=== PATIENT | male | born 1955 | race Caucasian/White ===

== ENCOUNTER 2017-02-26 13:36 | Emergency (ER) | payer MEDICAID ==
[~2017-02-26] VITALS: Ht 175.3 cm; Wt 80.0 kg
[2017-02-26 14:33] LABS: BASOPHILS % 0.5 % (0.0-2.0); EOSINOPHILS % 0.4 % (0.0-5.0); HEMATOCRIT. 47.5 % (42.0-52.0); HEMOGLOBIN. 15.8 g/dL (14.0-18.0); LYMPHOCYTES % 10.9 % (20.0-50.0); MEAN CORPUSCULAR HGB CONC 33.3 g/dL (31.0-37.0); MEAN CORPUSCULAR VOLUME 87.1 fL (80.0-94.0); MEAN PLATELET VOLUME 7.1 fl (7.4-10.4); MONOCYTES % 5.2 % (2.0-8.0); PLATELET 305 x1000/uL (130-400); RED BLOOD CELL COUNT 5.46 mill/uL (4.7-6.1); RED CELL DISTRIBUTION WIDTH 14.3 % (11.6-14.6); WHITE BLOOD COUNT 16.3 x1000/uL (4.5-11.0)
[2017-02-26 14:47] LABS: ALANINE AMINOTRANSFERASE 14 IU/L (13-61); ALBUMIN 3.7 g/dL (3.4-5.0); ANION GAP 12; CARBON DIOXIDE 29 mEq/L (21-32); CHLORIDE 106 mEq/L (98-107); INDEX HEMOLYSI 1 (1-3); INDEX ICTERIC 1 (1-4); INDEX LIPEMIC 1 (1-3); UREA NITROGEN BLOOD 10 mg/dL (7-21); eGFR > 60 mL/min (>60)
[2017-02-26 18:16] LABS: CLARITY URINE CLEAR (CLEAR); COLOR URINE YELLOW (YELLOW); GLUCOSE URINE NEGATIVE (NEGATIVE); KETONES URINE NEGATIVE (NEGATIVE); LEUKOCYTE ESTERASE URINE NEGATIVE (NEGATIVE); NITRITE URINE NEGATIVE (NEGATIVE); OCCULT BLOOD URINE TRACE (NEGATIVE); PROTEIN URINE 1+ (NEGATIVE)
[2017-02-26 18:50] LABS: BACTERIA URINE 1+; RBC URINE 0-2 /hpf (0-2); SQUAMOUS EPITHELIAL CELL URINE FEW /lpf (RARE/1+); WBC URINE 0-2 /hpf (0-2)
[2017-02-26 20:52] VITALS: BP 127/67
== END 2017-02-26 22:09 | disposition home or self-care (01) ==
LOC: ER 13:47
DX: G40.909 Epilepsy, unspecified, not intractable, without status epilepticus (principal); I10 Essential (primary) hypertension; I69.351 Hemiplegia and hemiparesis following cerebral infarction affecting right dominant side; I48.91 Unspecified atrial fibrillation; I25.2 Old myocardial infarction; D72.829 Elevated white blood cell count, unspecified; Z79.01 Long term (current) use of anticoagulants
CPT/HCPCS: 36415; 80053; 81001; 85025; 93005; 99284; Z7610

== ENCOUNTER 2019-08-29 13:31 | Inpatient (IN) | payer MEDICAID ==
[2019-08-29] VITALS (18 sets, daily range): BP systolic 99–162; BP diastolic 61–110
[~2019-08-29] VITALS: Ht 177.8 cm; Wt 94.4 kg
[2019-08-29] MEDS ORDERED: SODIUM CHLORIDE 0.9% 1,000 ML IV ONE (13:42)
[2019-08-29 14:22] LABS: BASOPHILS % 0.9 % (0.0-2.0); LYMPHOCYTES % 29.1 % (20.0-50.0); MEAN CORPUSCULAR HEMOGLOBIN 28.9 pg (28.0-32.0); MEAN CORPUSCULAR VOLUME 88.9 fL (80.0-94.0); MEAN PLATELET VOLUME 7.9 fl (7.4-10.4); PLATELET 388 x1000/uL (130-400); RED CELL DISTRIBUTION WIDTH 13.8 % (11.6-14.6)
[2019-08-29 14:29] LABS: CHLORIDE 115 mEq/L (98-107)
[2019-08-29 14:34] LABS: ETHANOL BLOOD < 10 mg/dL
[2019-08-29] MEDS ORDERED: LEVETIRACETAM 1000MG/100ML 100 ML IV ONE (14:45)
[2019-08-29] MEDS ORDERED: PROPOFOL 10MG/ML 100ML 100 ML IV SCH (14:45)
[2019-08-29 15:17] LABS: BG BASE EXCESS -13.2 mmol/L (-2.0-2.0); BG CARBOXYHEMOGLOBIN 1.1 % (0.5-1.5); BG DEOXYHEMOGLOBIN 1.1 % (0.0-5.0); BG FRACTION INSPIRED OXYGEN 60; BG HCO3 ACT 14.3 mmol/L (22.0-26.0); BG METHEMOGLOBIN 0.3 % (0.0-1.5); BG OXYGEN SATURATION 98.9 % (92.0-98.5); BG OXYHEMOGLOBIN 97.5 % (94.0-97.0); BG PCO2 38.5 mmHg (35.0-45.0); BG PH 7.187 (7.350-7.450); BG SAMPLE SITE RIGHT RADIAL; BG TIDAL VOLUME(mL) 500 mL; BG TOTAL HEMOGLOBIN 12.3 g/dL (12.0-18.0); BG VENT MODE VENT - A/C; BG VENT RATE 14 set
[2019-08-29 15:54] LABS: CLARITY URINE TURBID (CLEAR); COLOR URINE YELLOW (YELLOW); KETONES URINE NEGATIVE (NEGATIVE); LEUKOCYTE ESTERASE URINE 1+ (NEGATIVE); NITRITE URINE NEGATIVE (NEGATIVE); OCCULT BLOOD URINE 1+ (NEGATIVE); PROTEIN URINE 3+ (NEGATIVE); SPECIFIC GRAVITY URINE 1.012 (1.005-1.030); UROBILINOGEN URINE 0.2 E.U./dL (0.2-1.0)
[2019-08-29] MEDS ORDERED: SODIUM BICARBONATE 8.4% 1 MEQ/ML 50ML SYR IV SCH (16:00)
[2019-08-29] MEDS ORDERED: PIPERACILLIN/TAZOBACTAM 3.375 G in DEXT 5% WATER 100 ML IV SCH (16:00)
[2019-08-29 16:08] LABS: *AMPHETAMINES SCREEN URINE NEGATIVE (NEGATIVE); *BARBITURATES SCREEN URINE NEGATIVE (NEGATIVE)
[2019-08-29 16:09] LABS: *BENZODIAZEPINES SCREEN URINE NEGATIVE (NEGATIVE); *COCAINE SCREEN URINE NEGATIVE (NEGATIVE); CANNABINOID URINE SCREEN NEGATIVE (NEGATIVE); METHADONE URINE SCREEN NEGATIVE (NEGATIVE); OPIATES URINE SCREEN NEGATIVE (NEGATIVE); PHENCYCLIDINE URINE SCREEN NEGATIVE (NEGATIVE)
[2019-08-29] MEDS ORDERED: LACTULOSE 20G/30ML UDC PO SCH (16:15)
[2019-08-29 17:47] LABS: CREATINE KINASE 58 IU/L (39-308)
[2019-08-29] MEDS: PIPERACILLIN/TAZOBACTAM 2.25 G in DEXTROSE 5% WATER 50 ML IV SCH (17:49)
[2019-08-29] MEDS: ENOXAPARIN 100MG/ML SYR SUBCUT SCH (17:49)
[2019-08-29] MEDS: PROPOFOL 10MG/ML 100ML 100 ML IV PRN (17:49)
[2019-08-29] MEDS: FAMOTIDINE 20MG TABLET PO SCH (17:50)
[2019-08-29 18:00] LABS: CHLORIDE 118 mEq/L (98-107)
[2019-08-29] MEDS ORDERED: VANCOMYCIN 1500MG in DEXTROSE 5% WATER 250ML IV NR (18:30)
[2019-08-29] MEDS ORDERED: AMLO10TA4 PO (18:33)
[2019-08-29] MEDS ORDERED: METO25TA6 PO (18:33)
[2019-08-29] MEDS ORDERED: ASPI-1393 PO (18:33)
[2019-08-29] MEDS ORDERED: KEPP500 PO (18:33)
[2019-08-29] MEDS ORDERED: LORAZEPAM 2MG/ML CPJ IV PRN ×2 (18:45→20:30)
[2019-08-29] MEDS ORDERED: HYDROCODONE/ACETAMINOPHEN 10/325MG TABLET PO PRN (20:30)
[2019-08-29] MEDS ORDERED: ONDANSETRON HCL 4MG/2ML INJ IV PRN (20:30)
[2019-08-29] MEDS ORDERED: GUAIFENESIN 200MG/10ML SUGAR FREE UDC PO PRN (20:30)
[2019-08-29] MEDS ORDERED: MAGNESIUM/ALUMINUM HYDROXIDE/SIMETHICONE 30ML UDC PO PRN (20:30)
[2019-08-29] MEDS ORDERED: DOCUSATE SODIUM 100MG CAPSULE PO PRN (20:30)
[2019-08-29] MEDS ORDERED: HYDROMORPHONE HCL/PF 2MG/ML CPJ IV PRN (20:30)
[2019-08-29] MEDS ORDERED: DIPHENHYDRAMINE 50MG/ML VIAL IV PRN (20:30)
[2019-08-29] MEDS: IPRATROPIUM/ALBUTEROL 0.5-3(2.5)MG/3ML NEB HHN SCH (20:36)
[2019-08-29] MEDS: DEXT 5%/0.45% NACL 1000ML 1,000 ML IV SCH (20:49)
[2019-08-29] MEDS: CLONIDINE 0.1MG TABLET PO PRN (20:56)
[2019-08-29] MEDS: SODIUM CHLORIDE 0.9% INJ 3ML FLUSH IVF SCH (21:18)
[2019-08-30] VITALS (60 sets, daily range): BP systolic 105–173; BP diastolic 59–97
[2019-08-30 00:02] LABS: CREATINE KINASE MB FRACTION 2.8 ng/mL (0.5-3.6)
[2019-08-30] MEDS: PIPERACILLIN/TAZOBACTAM 2.25 G in DEXTROSE 5% WATER 50 ML IV SCH ×5 (00:26→23:47)
[2019-08-30] MEDS: IPRATROPIUM/ALBUTEROL 0.5-3(2.5)MG/3ML NEB HHN SCH ×5 (02:17→20:15)
[2019-08-30] MEDS: SODIUM CHLORIDE 0.9% INJ 3ML FLUSH IVF SCH ×3 (05:34→21:11)
[2019-08-30 06:30] LABS: BASOPHILS % 0.4 % (0.0-2.0); EOSINOPHILS % 0.5 % (0.0-5.0); HEMATOCRIT. 34.4 % (42.0-52.0); HEMOGLOBIN. 11.5 g/dL (14.0-18.0); LYMPHOCYTES % 9.2 % (20.0-50.0); MEAN CORPUSCULAR HEMOGLOBIN 29.2 pg (28.0-32.0); MEAN CORPUSCULAR VOLUME 87.6 fL (80.0-94.0); MEAN PLATELET VOLUME 7.6 fl (7.4-10.4); NEUTROPHILS % 81.9 % (40.0-76.0); PLATELET 296 x1000/uL (130-400); RED BLOOD CELL COUNT 3.93 mill/uL (4.7-6.1); RED CELL DISTRIBUTION WIDTH 13.8 % (11.6-14.6)
[2019-08-30 07:56] LABS: BG CARBOXYHEMOGLOBIN 0.9 % (0.5-1.5); BG DEOXYHEMOGLOBIN 1.7 % (0.0-5.0); BG FRACTION INSPIRED OXYGEN 40; BG HCO3 ACT 14.9 mmol/L (22.0-26.0); BG METHEMOGLOBIN 0.3 % (0.0-1.5); BG OXYGEN SATURATION 98.3 % (92.0-98.5); BG OXYHEMOGLOBIN 97.1 % (94.0-97.0); BG PCO2 29.8 mmHg (35.0-45.0); BG PH 7.316 (7.350-7.450); BG PO2 121.9 mmHg (75.0-100.0); BG SAMPLE SITE RIGHT RADIAL; BG TIDAL VOLUME(mL) 500 mL; BG TOTAL HEMOGLOBIN 11.3 g/dL (12.0-18.0); BG VENT MODE VENT - A/C; BG VENT RATE 18 set
[2019-08-30] MEDS ORDERED: PHENYTOIN SODIUM 1,000 MG in SODIUM CHLORIDE 0.9% 100 ML IV SCH (08:00)
[2019-08-30] MEDS: PROPOFOL 10MG/ML 100ML 100 ML IV PRN (09:02)
[2019-08-30] MEDS ORDERED: WATER IV PRN (10:00)
[2019-08-30] MEDS ORDERED: DEXT 5% IV PRN (10:00)
[2019-08-30] MEDS ORDERED: ATROPINE SULFATE 1MG/10ML SYR IV PRN (10:00)
[2019-08-30] MEDS ORDERED: ISOPROTERENOL HCL IV PRN (10:00)
[2019-08-30] MEDS: DEXT 5%/0.45% NACL 1000ML 1,000 ML IV SCH ×2 (10:05→17:09)
[2019-08-30 10:45] LABS: CHLORIDE 117 mEq/L (98-107)
[2019-08-30 10:55] LABS: LDL CHOLESTEROL 96 mg/dL (5-100); PHOSPHORUS 5.1 mg/dL (2.5-4.9)
[2019-08-30 10:56] LABS: CREATINE KINASE 126 IU/L (39-308); CREATINE KINASE MB FRACTION 3.4 ng/mL (0.5-3.6); HDL CHOLESTEROL 29 mg/dL (40-59)
[2019-08-30 10:57] LABS: T4 FREE 1.29 ng/dL (0.76-1.46)
[2019-08-30] MEDS: MIDAZOLAM HCL 50 MG in DEXTROSE 5% WATER 40 ML IV SCH ×2 (11:45→20:58)
[2019-08-30] MEDS: LEVETIRACETAM 500 MG in SODIUM CHLORIDE 0.9% 100 ML IV SCH ×2 (12:42→23:47)
[2019-08-30 14:05] LABS: CREATINE KINASE 161 IU/L (39-308)
[2019-08-30] MEDS: LACTULOSE 20G/30ML UDC PO SCH ×2 (15:03→21:11)
[2019-08-30] MEDS: ENOXAPARIN 100MG/ML SYR SUBCUT SCH (17:08)
[2019-08-30] MEDS: FAMOTIDINE 20MG TABLET PO SCH (17:09)
[2019-08-30] MEDS: PHENYTOIN SODIUM 300 MG in SODIUM CHLORIDE 0.9% 50 ML IV SCH (21:11)
[2019-08-31] VITALS (42 sets, daily range): BP systolic 132–187; BP diastolic 72–147
[2019-08-31] MEDS: IPRATROPIUM/ALBUTEROL 0.5-3(2.5)MG/3ML NEB HHN SCH ×3 (02:07→19:59)
[2019-08-31] MEDS: DEXT 5%/0.45% NACL 1000ML 1,000 ML IV SCH ×3 (02:10→18:49)
[2019-08-31] MEDS: MIDAZOLAM HCL 50 MG in DEXTROSE 5% WATER 40 ML IV SCH ×2 (03:52→14:43)
[2019-08-31] MEDS: PIPERACILLIN/TAZOBACTAM 2.25 G in DEXTROSE 5% WATER 50 ML IV SCH ×3 (05:09→17:21)
[2019-08-31] MEDS: SODIUM CHLORIDE 0.9% INJ 3ML FLUSH IVF SCH ×2 (05:09→14:42)
[2019-08-31] MEDS: LACTULOSE 20G/30ML UDC PO SCH ×3 (05:10→22:38)
[2019-08-31 05:54] LABS: BASOPHILS % 0.3 % (0.0-2.0); EOSINOPHILS % 0.5 % (0.0-5.0); HEMATOCRIT. 33.8 % (42.0-52.0); HEMOGLOBIN. 11.3 g/dL (14.0-18.0); LYMPHOCYTES % 9.1 % (20.0-50.0); MEAN CORPUSCULAR HEMOGLOBIN 29.2 pg (28.0-32.0); MEAN CORPUSCULAR VOLUME 87.5 fL (80.0-94.0); MEAN PLATELET VOLUME 7.7 fl (7.4-10.4); MONOCYTES % 8.7 % (2.0-8.0); NEUTROPHILS % 81.4 % (40.0-76.0); PLATELET 280 x1000/uL (130-400); RED BLOOD CELL COUNT 3.87 mill/uL (4.7-6.1)
[2019-08-31] MEDS ORDERED: CITRIC ACID/SODIUM CITRATE SOLN 30ML UDC PO SCH (09:00)
[2019-08-31] MEDS: IPRATROPIUM/ALBUTEROL 0.5-3(2.5)MG/3ML NEB HHN PRN (09:03)
[2019-08-31] MEDS: LEVETIRACETAM 500 MG in SODIUM CHLORIDE 0.9% 100 ML IV SCH ×2 (11:19→23:53)
[2019-08-31] MEDS ORDERED: VANCOMYCIN 1 G PREMIX 200 ML IV NR (12:00)
[2019-08-31] MEDS: CITRIC ACID/SODIUM CITRATE SOLN 30ML UDC NG SCH ×2 (14:42→17:30)
[2019-08-31] MEDS: FAMOTIDINE 20MG TABLET PO SCH (17:21)
[2019-08-31] MEDS: ENOXAPARIN 100MG/ML SYR SUBCUT SCH (17:21)
[2019-08-31] MEDS: CLONIDINE 0.1MG TABLET PO PRN ×2 (17:42→23:36)
[2019-09-01] VITALS (65 sets, daily range): BP systolic 123–184; BP diastolic 51–142
[2019-09-01] MEDS: ACETAMINOPHEN 325MG TABLET PO PRN (00:16)
[2019-09-01] MEDS: IPRATROPIUM/ALBUTEROL 0.5-3(2.5)MG/3ML NEB HHN SCH ×4 (02:01→21:09)
[2019-09-01] MEDS: PHENYTOIN SODIUM 300 MG in SODIUM CHLORIDE 0.9% 50 ML IV SCH ×2 (04:36→20:46)
[2019-09-01] MEDS: PIPERACILLIN/TAZOBACTAM 2.25 G in DEXTROSE 5% WATER 50 ML IV SCH ×5 (05:53→17:37)
[2019-09-01] MEDS: LACTULOSE 20G/30ML UDC PO SCH ×3 (05:53→22:49)
[2019-09-01 07:15] LABS: BASOPHILS % 0.5 % (0.0-2.0); EOSINOPHILS % 1.5 % (0.0-5.0); HEMATOCRIT. 33.1 % (42.0-52.0); LYMPHOCYTES % 14.4 % (20.0-50.0); MEAN CORPUSCULAR HEMOGLOBIN 28.8 pg (28.0-32.0); MEAN CORPUSCULAR VOLUME 86.6 fL (80.0-94.0); MONOCYTES % 9.4 % (2.0-8.0); NEUTROPHILS % 74.2 % (40.0-76.0); PLATELET 271 x1000/uL (130-400); RED BLOOD CELL COUNT 3.83 mill/uL (4.7-6.1); RED CELL DISTRIBUTION WIDTH 13.9 % (11.6-14.6)
[2019-09-01 08:42] LABS: BG CARBOXYHEMOGLOBIN 1.2 % (0.5-1.5); BG DEOXYHEMOGLOBIN 2.1 % (0.0-5.0); BG FRACTION INSPIRED OXYGEN 40; BG METHEMOGLOBIN 0.3 % (0.0-1.5); BG OXYGEN SATURATION 97.9 % (92.0-98.5); BG OXYHEMOGLOBIN 96.4 % (94.0-97.0); BG PCO2 35.1 mmHg (35.0-45.0); BG PH 7.329 (7.350-7.450); BG PO2 108.6 mmHg (75.0-100.0); BG SAMPLE SITE RIGHT RADIAL; BG TIDAL VOLUME(mL) 500 mL; BG TOTAL HEMOGLOBIN 13.2 g/dL (12.0-18.0); BG VENT MODE VENT - A/C; BG VENT RATE 18 set
[2019-09-01] MEDS: CITRIC ACID/SODIUM CITRATE SOLN 30ML UDC NG SCH ×3 (09:04→17:37)
[2019-09-01] MEDS ORDERED: LIDOCAINE HCL 1% 20ML VIAL (Pyxis) INJ ONE (11:02)
[2019-09-01] MEDS: NITROGLYCERIN 50MG PREMIX 250 ML IV PRN ×2 (11:29→20:45)
[2019-09-01] MEDS: LEVETIRACETAM 1,000 MG in SODIUM CHLORIDE 0.9% 100 ML IV SCH ×3 (11:40→20:46)
[2019-09-01] MEDS: MIDAZOLAM HCL 50 MG in DEXTROSE 5% WATER 40 ML IV SCH (13:05)
[2019-09-01] MEDS: SODIUM CHLORIDE 0.9% INJ 3ML FLUSH IVF SCH ×2 (13:23→22:40)
[2019-09-01 13:44] LABS: BG BASE EXCESS -6.7 mmol/L (-2.0-2.0); BG CARBOXYHEMOGLOBIN 0.4 % (0.5-1.5); BG DEOXYHEMOGLOBIN 2.9 % (0.0-5.0); BG FRACTION INSPIRED OXYGEN 40; BG HCO3 ACT 18.1 mmol/L (22.0-26.0); BG OXYGEN SATURATION 97.1 % (92.0-98.5); BG OXYHEMOGLOBIN 96.7 % (94.0-97.0); BG PCO2 33.6 mmHg (35.0-45.0); BG PH 7.349 (7.350-7.450); BG PO2 92.4 mmHg (75.0-100.0); BG PRESSURE SUPPORT 14; BG SAMPLE SITE RIGHT RADIAL; BG TIDAL VOLUME(mL) 500 mL; BG TOTAL HEMOGLOBIN 11.7 g/dL (12.0-18.0); BG VENT MODE VENT - SIMV; BG VENT RATE 12 set
[2019-09-01] MEDS: DEXT 5%/0.45% NACL 1000ML 1,000 ML IV SCH (13:50)
[2019-09-01 16:11] LABS: BG BASE EXCESS -4.8 mmol/L (-2.0-2.0); BG CARBOXYHEMOGLOBIN 0.5 % (0.5-1.5); BG DEOXYHEMOGLOBIN 4.9 % (0.0-5.0); BG FRACTION INSPIRED OXYGEN 40; BG HCO3 ACT 20.7 mmol/L (22.0-26.0); BG METHEMOGLOBIN 0.3 % (0.0-1.5); BG OXYGEN SATURATION 95.1 % (92.0-98.5); BG OXYHEMOGLOBIN 94.3 % (94.0-97.0); BG PCO2 39.9 mmHg (35.0-45.0); BG PH 7.333 (7.350-7.450); BG PO2 75.4 mmHg (75.0-100.0); BG PRESSURE SUPPORT 12; BG SAMPLE SITE RIGHT RADIAL; BG TIDAL VOLUME(mL) 500 mL; BG TOTAL HEMOGLOBIN 11.3 g/dL (12.0-18.0); BG VENT MODE VENT - SIMV; BG VENT RATE 6 set
[2019-09-01] MEDS: ENOXAPARIN 100MG/ML SYR SUBCUT SCH (17:37)
[2019-09-01] MEDS: FAMOTIDINE 20MG TABLET PO SCH (17:37)
[2019-09-02] VITALS (93 sets, daily range): BP systolic 111–180; BP diastolic 60–131
[2019-09-02] MEDS: PIPERACILLIN/TAZOBACTAM 2.25 G in DEXTROSE 5% WATER 50 ML IV SCH ×5 (02:01→23:30)
[2019-09-02] MEDS: NITROGLYCERIN 50MG PREMIX 250 ML IV PRN ×5 (02:02→23:31)
[2019-09-02] MEDS: MIDAZOLAM HCL 50 MG in DEXTROSE 5% WATER 40 ML IV SCH (02:33)
[2019-09-02] MEDS: IPRATROPIUM/ALBUTEROL 0.5-3(2.5)MG/3ML NEB HHN SCH ×4 (02:44→19:57)
[2019-09-02] MEDS: SODIUM CHLORIDE 0.9% INJ 3ML FLUSH IVF SCH ×3 (05:05→21:12)
[2019-09-02 05:50] LABS: HEMATOCRIT. 30.3 % (42.0-52.0); HEMOGLOBIN. 10.3 g/dL (14.0-18.0); MEAN CORPUSCULAR HEMOGLOBIN 29.3 pg (28.0-32.0); MEAN CORPUSCULAR VOLUME 86.1 fL (80.0-94.0); MEAN PLATELET VOLUME 7.9 fl (7.4-10.4); PLATELET 260 x1000/uL (130-400); RED BLOOD CELL COUNT 3.52 mill/uL (4.7-6.1); RED CELL DISTRIBUTION WIDTH 13.9 % (11.6-14.6)
[2019-09-02] MEDS: LACTULOSE 20G/30ML UDC PO SCH ×2 (06:07→17:15)
[2019-09-02] MEDS: CLONIDINE 0.1MG TABLET PO PRN (06:09)
[2019-09-02] MEDS ORDERED: POTASSIUM CHLORIDE 20MEQ/PACKET PO NR (06:15)
[2019-09-02 07:42] LABS: PLATELET ESTIMATE NORMAL
[2019-09-02] MEDS: LEVETIRACETAM 1,000 MG in SODIUM CHLORIDE 0.9% 100 ML IV SCH ×2 (08:58→21:11)
[2019-09-02] MEDS: CITRIC ACID/SODIUM CITRATE SOLN 30ML UDC NG SCH ×3 (08:58→17:15)
[2019-09-02 09:13] LABS: BG BASE EXCESS -3.9 mmol/L (-2.0-2.0); BG CARBOXYHEMOGLOBIN 0.3 % (0.5-1.5); BG DEOXYHEMOGLOBIN 2.4 % (0.0-5.0); BG FRACTION INSPIRED OXYGEN 40; BG METHEMOGLOBIN 0.2 % (0.0-1.5); BG OXYGEN SATURATION 97.6 % (92.0-98.5); BG OXYHEMOGLOBIN 97.1 % (94.0-97.0); BG PCO2 37.3 mmHg (35.0-45.0); BG PH 7.368 (7.350-7.450); BG PRESSURE SUPPORT 12; BG SAMPLE SITE RIGHT RADIAL; BG TIDAL VOLUME(mL) 500 mL; BG TOTAL HEMOGLOBIN 10.2 g/dL (12.0-18.0); BG VENT MODE VENT - SIMV; BG VENT RATE 6 set
[2019-09-02] MEDS: HYDRALAZINE HCL 50MG TABLET PO SCH ×3 (09:30→21:11)
[2019-09-02] MEDS ORDERED: MORPHINE SULFATE 2 MG/ML CPJ (NOT FOR IM USE) IV PRN (09:45)
[2019-09-02] MEDS: DEXT 5%/0.45% NACL 1000ML 1,000 ML IV SCH (12:57)
[2019-09-02] MEDS: FAMOTIDINE 20MG TABLET PO SCH (17:15)
[2019-09-02] MEDS: ENOXAPARIN 100MG/ML SYR SUBCUT SCH (17:16)
[2019-09-02] MEDS: PHENYTOIN SODIUM 300 MG in SODIUM CHLORIDE 0.9% 50 ML IV SCH (21:11)
[2019-09-03] VITALS (102 sets, daily range): BP systolic 118–185; BP diastolic 59–134
[2019-09-03] MEDS: IPRATROPIUM/ALBUTEROL 0.5-3(2.5)MG/3ML NEB HHN SCH ×4 (00:45→20:11)
[2019-09-03] MEDS: CLONIDINE 0.1MG TABLET PO PRN ×2 (01:34→14:54)
[2019-09-03] MEDS: PIPERACILLIN/TAZOBACTAM 2.25 G in DEXTROSE 5% WATER 50 ML IV SCH ×4 (05:28→23:40)
[2019-09-03] MEDS: SODIUM CHLORIDE 0.9% INJ 3ML FLUSH IVF SCH ×3 (05:28→21:33)
[2019-09-03] MEDS: NITROGLYCERIN 50MG PREMIX 250 ML IV PRN ×2 (05:28→22:41)
[2019-09-03 05:29] LABS: BASOPHILS % 0.2 % (0.0-2.0); EOSINOPHILS % 1.8 % (0.0-5.0); HEMATOCRIT. 27.5 % (42.0-52.0); HEMOGLOBIN. 9.2 g/dL (14.0-18.0); LYMPHOCYTES % 7.3 % (20.0-50.0); MEAN CORPUSCULAR HEMOGLOBIN 29.2 pg (28.0-32.0); MEAN CORPUSCULAR VOLUME 87.4 fL (80.0-94.0); MEAN PLATELET VOLUME 8.1 fl (7.4-10.4); MONOCYTES % 10.4 % (2.0-8.0); NEUTROPHILS % 80.3 % (40.0-76.0); PLATELET 223 x1000/uL (130-400); RED BLOOD CELL COUNT 3.15 mill/uL (4.7-6.1); RED CELL DISTRIBUTION WIDTH 13.9 % (11.6-14.6)
[2019-09-03] MEDS: HYDRALAZINE HCL 50MG TABLET PO SCH ×3 (05:30→21:33)
[2019-09-03 05:38] LABS: PHOSPHORUS 3.9 mg/dL (2.5-4.9)
[2019-09-03] MEDS ORDERED: POTASSIUM CHLORIDE INJ 40 MEQ in DEXT 5% WATER 250 ML IV SCH (06:00)
[2019-09-03] MEDS ORDERED: MAGNESIUM 2 G PREMIX 50 ML IV NR (09:00)
[2019-09-03 09:08] LABS: COMPLEMENT C3 108 mg/dL (82-167)
[2019-09-03] MEDS: LEVETIRACETAM 1,000 MG in SODIUM CHLORIDE 0.9% 100 ML IV SCH ×2 (09:16→20:48)
[2019-09-03] MEDS: LACTULOSE 20G/30ML UDC PO SCH ×2 (09:16→18:02)
[2019-09-03] MEDS: CITRIC ACID/SODIUM CITRATE SOLN 30ML UDC NG SCH ×3 (09:16→18:02)
[2019-09-03 10:48] LABS: BG BASE EXCESS -3.5 mmol/L (-2.0-2.0); BG CARBOXYHEMOGLOBIN 0.3 % (0.5-1.5); BG DEOXYHEMOGLOBIN 3.4 % (0.0-5.0); BG FRACTION INSPIRED OXYGEN 40; BG METHEMOGLOBIN 0.3 % (0.0-1.5); BG OXYGEN SATURATION 96.6 % (92.0-98.5); BG PCO2 41.6 mmHg (35.0-45.0); BG PH 7.342 (7.350-7.450); BG PRESSURE SUPPORT 8; BG SAMPLE SITE RIGHT RADIAL; BG TOTAL HEMOGLOBIN 9.7 g/dL (12.0-18.0); BG VENT MODE VENT - CPAP
[2019-09-03] MEDS: IPRATROPIUM/ALBUTEROL 0.5-3(2.5)MG/3ML NEB HHN PRN (11:19)
[2019-09-03] MEDS: VANCOMYCIN 1 G PREMIX 200 ML IV NR ×2 (11:54→12:00)
[2019-09-03] MEDS: DEXT 5%/0.45% NACL 1000ML 1,000 ML IV SCH (11:55)
[2019-09-03 17:06] LABS: ANTI-NUCLEAR ANTIBODIES DIRECT Positive (Negative)
[2019-09-03] MEDS: ENOXAPARIN 80MG/0.8ML SYR SUBCUT SCH (17:59)
[2019-09-03] MEDS: FAMOTIDINE 20MG TABLET PO SCH (18:04)
[2019-09-03] MEDS: CARVEDILOL 6.25 MG TABLET PO SCH (18:04)
[2019-09-03] MEDS: PHENYTOIN SODIUM 300 MG in SODIUM CHLORIDE 0.9% 50 ML IV SCH (21:33)
[2019-09-04] VITALS (98 sets, daily range): BP systolic 113–219; BP diastolic 53–107
[2019-09-04] MEDS: CLONIDINE 0.1MG TABLET PO PRN ×2 (01:24→14:12)
[2019-09-04] MEDS: IPRATROPIUM/ALBUTEROL 0.5-3(2.5)MG/3ML NEB HHN SCH ×3 (02:02→20:06)
[2019-09-04] MEDS: PIPERACILLIN/TAZOBACTAM 2.25 G in DEXTROSE 5% WATER 50 ML IV SCH ×3 (05:40→17:38)
[2019-09-04] MEDS: CARVEDILOL 6.25 MG TABLET PO SCH ×2 (05:42→17:21)
[2019-09-04] MEDS: SODIUM CHLORIDE 0.9% INJ 3ML FLUSH IVF SCH ×3 (05:42→22:05)
[2019-09-04] MEDS: HYDRALAZINE HCL 50MG TABLET PO SCH ×3 (05:42→21:21)
[2019-09-04] MEDS: NITROGLYCERIN 50MG PREMIX 250 ML IV PRN ×2 (06:48→13:35)
[2019-09-04 07:06] LABS: BASOPHILS % 0.4 % (0.0-2.0); EOSINOPHILS % 4.1 % (0.0-5.0); HEMATOCRIT. 28.6 % (42.0-52.0); HEMOGLOBIN. 9.5 g/dL (14.0-18.0); LYMPHOCYTES % 7.5 % (20.0-50.0); MEAN CORPUSCULAR VOLUME 87.2 fL (80.0-94.0); MEAN PLATELET VOLUME 8.1 fl (7.4-10.4); PLATELET 249 x1000/uL (130-400); RED BLOOD CELL COUNT 3.28 mill/uL (4.7-6.1); RED CELL DISTRIBUTION WIDTH 13.5 % (11.6-14.6)
[2019-09-04 07:43] LABS: PHOSPHORUS 3.4 mg/dL (2.5-4.9)
[2019-09-04] MEDS ORDERED: POTASSIUM CHLORIDE 20MEQ/PACKET PO NR (08:00)
[2019-09-04] MEDS: LEVETIRACETAM 1,000 MG in SODIUM CHLORIDE 0.9% 100 ML IV SCH ×2 (08:20→21:20)
[2019-09-04] MEDS: LACTULOSE 20G/30ML UDC PO SCH ×2 (08:20→17:20)
[2019-09-04] MEDS: DEXT 5%/0.45% NACL 1000ML 1,000 ML IV SCH (11:24)
[2019-09-04] MEDS: LORAZEPAM 2MG/ML CPJ IV PRN (12:13)
[2019-09-04] MEDS ORDERED: HYDRALAZINE HCL 50MG TABLET PO NR (15:15)
[2019-09-04] MEDS: FAMOTIDINE 20MG TABLET PO SCH (17:20)
[2019-09-04] MEDS: ENOXAPARIN 80MG/0.8ML SYR SUBCUT SCH (17:20)
[2019-09-04] MEDS: NICARDIPINE 50 MG in SODIUM CHLORIDE 0.9% 230 ML IV PRN ×2 (17:21→22:07)
[2019-09-04] MEDS: PHENYTOIN SODIUM 300 MG in SODIUM CHLORIDE 0.9% 50 ML IV SCH (21:20)
[2019-09-05] VITALS (88 sets, daily range): BP systolic 118–203; BP diastolic 42–115
[2019-09-05] MEDS: PIPERACILLIN/TAZOBACTAM 2.25 G in DEXTROSE 5% WATER 50 ML IV SCH ×5 (01:07→23:47)
[2019-09-05] MEDS: IPRATROPIUM/ALBUTEROL 0.5-3(2.5)MG/3ML NEB HHN SCH ×3 (01:49→20:15)
[2019-09-05] MEDS: NICARDIPINE 50 MG in SODIUM CHLORIDE 0.9% 230 ML IV PRN ×6 (02:08→23:25)
[2019-09-05] MEDS: LORAZEPAM 2MG/ML CPJ IV PRN ×2 (04:13→23:38)
[2019-09-05] MEDS: NITROGLYCERIN 50MG PREMIX 250 ML IV PRN (04:24)
[2019-09-05] MEDS: CLONIDINE 0.1MG TABLET PO PRN (04:25)
[2019-09-05 05:36] LABS: HEMOGLOBIN. 10.4 g/dL (14.0-18.0); MEAN CORPUSCULAR HEMOGLOBIN 28.7 pg (28.0-32.0); MEAN CORPUSCULAR VOLUME 88.1 fL (80.0-94.0); MEAN PLATELET VOLUME 8.2 fl (7.4-10.4); PLATELET 280 x1000/uL (130-400); RED BLOOD CELL COUNT 3.64 mill/uL (4.7-6.1); RED CELL DISTRIBUTION WIDTH 13.7 % (11.6-14.6)
[2019-09-05 05:47] LABS: PHOSPHORUS 2.3 mg/dL (2.5-4.9)
[2019-09-05] MEDS: SODIUM CHLORIDE 0.9% INJ 3ML FLUSH IVF SCH ×3 (05:54→21:55)
[2019-09-05] MEDS: CARVEDILOL 6.25 MG TABLET PO SCH ×2 (05:58→17:06)
[2019-09-05] MEDS: HYDRALAZINE HCL 50MG TABLET PO SCH ×4 (05:59→23:32)
[2019-09-05 07:25] LABS: PLATELET ESTIMATE NORMAL
[2019-09-05] MEDS: LACTULOSE 20G/30ML UDC PO SCH ×2 (09:00→17:06)
[2019-09-05] MEDS: LEVETIRACETAM 1,000 MG in SODIUM CHLORIDE 0.9% 100 ML IV SCH ×2 (09:00→20:13)
[2019-09-05] MEDS ORDERED: POTASSIUM PHOS,M-BASIC-D-BASIC 20 MMOL in DEXT 5% WATER 250 ML IV SCH (09:30)
[2019-09-05] MEDS: CLONIDINE 0.1MG TABLET PO SCH ×2 (13:01→21:55)
[2019-09-05] MEDS: ENOXAPARIN 80MG/0.8ML SYR SUBCUT SCH (17:06)
[2019-09-05] MEDS: FAMOTIDINE 20MG TABLET PO SCH (17:07)
[2019-09-05] MEDS: PHENYTOIN SODIUM 300 MG in SODIUM CHLORIDE 0.9% 50 ML IV SCH (21:16)
[2019-09-06] VITALS (72 sets, daily range): BP systolic 0–193; BP diastolic 23–100
[2019-09-06] MEDS ORDERED: VECURONIUM BROMIDE 10 MG/VIAL IV ONE (01:00)
[2019-09-06] MEDS ORDERED: ETOMIDATE 2MG/ML 10ML VIAL IV ONE (01:00)
[2019-09-06 01:30] LABS: BG BASE EXCESS -11.1 mmol/L (-2.0-2.0); BG CARBOXYHEMOGLOBIN 0.4 % (0.5-1.5); BG DEOXYHEMOGLOBIN 1.2 % (0.0-5.0); BG FRACTION INSPIRED OXYGEN 100; BG HCO3 ACT 19.8 mmol/L (22.0-26.0); BG METHEMOGLOBIN 0.3 % (0.0-1.5); BG OXYGEN SATURATION 98.8 % (92.0-98.5); BG OXYHEMOGLOBIN 98.1 % (94.0-97.0); BG PCO2 73.4 mmHg (35.0-45.0); BG PH 7.049 (7.350-7.450); BG PO2 184.7 mmHg (75.0-100.0); BG SAMPLE SITE RIGHT RADIAL; BG TIDAL VOLUME(mL) 500 mL; BG TOTAL HEMOGLOBIN 10.8 g/dL (12.0-18.0); BG VENT MODE VENT - A/C; BG VENT RATE 14 set
[2019-09-06 01:47] LABS: HEMOGLOBIN. 9.5 g/dL (14.0-18.0); MEAN CORPUSCULAR HEMOGLOBIN 29.1 pg (28.0-32.0); MEAN CORPUSCULAR VOLUME 89.1 fL (80.0-94.0); MEAN PLATELET VOLUME 7.6 fl (7.4-10.4); PLATELET 322 x1000/uL (130-400); RED BLOOD CELL COUNT 3.26 mill/uL (4.7-6.1)
[2019-09-06 01:56] LABS: CHLORIDE 113 mEq/L (98-107)
[2019-09-06] MEDS ORDERED: SODIUM BICARBONATE 8.4% 1 MEQ/ML 50ML SYR IV NR (02:00)
[2019-09-06] MEDS: IPRATROPIUM/ALBUTEROL 0.5-3(2.5)MG/3ML NEB HHN SCH ×4 (02:21→21:14)
[2019-09-06] MEDS: LORAZEPAM 2MG/ML CPJ IV PRN ×7 (02:22→21:04)
[2019-09-06] MEDS ORDERED: PROPOFOL 10MG/ML 100ML 100 ML IV PRN (04:45)
[2019-09-06] MEDS ORDERED: NOREPINEPHRINE 16 MG in DEXT 5% WATER 234 ML IV PRN (04:45)
[2019-09-06 05:10] LABS: HEMOGLOBIN. 9.9 g/dL (14.0-18.0); MEAN CORPUSCULAR VOLUME 88.1 fL (80.0-94.0); MEAN PLATELET VOLUME 7.9 fl (7.4-10.4); PLATELET 293 x1000/uL (130-400)
[2019-09-06 05:33] LABS: PHOSPHORUS 5.3 mg/dL (2.5-4.9)
[2019-09-06] MEDS: PIPERACILLIN/TAZOBACTAM 2.25 G in DEXTROSE 5% WATER 50 ML IV SCH ×3 (06:00→17:45)
[2019-09-06] MEDS ORDERED: CARVEDILOL 12.5MG TABLET PO SCH (06:00)
[2019-09-06] MEDS: HYDRALAZINE HCL 50MG TABLET PO SCH ×2 (06:00→11:12)
[2019-09-06] MEDS: CLONIDINE 0.1MG TABLET PO SCH (06:00)
[2019-09-06] MEDS: SODIUM CHLORIDE 0.9% INJ 3ML FLUSH IVF SCH ×3 (06:56→22:00)
[2019-09-06 07:01] LABS: PLATELET ESTIMATE NORMAL
[2019-09-06 07:59] LABS: PLATELET ESTIMATE NORMAL
[2019-09-06 08:28] LABS: BG BASE EXCESS -2.3 mmol/L (-2.0-2.0); BG CARBOXYHEMOGLOBIN 0.8 % (0.5-1.5); BG DEOXYHEMOGLOBIN 0.7 % (0.0-5.0); BG FRACTION INSPIRED OXYGEN 100; BG HCO3 ACT 22.2 mmol/L (22.0-26.0); BG METHEMOGLOBIN 0.1 % (0.0-1.5); BG OXYGEN SATURATION 99.3 % (92.0-98.5); BG OXYHEMOGLOBIN 98.4 % (94.0-97.0); BG PCO2 36.9 mmHg (35.0-45.0); BG PH 7.397 (7.350-7.450); BG PO2 177.7 mmHg (75.0-100.0); BG SAMPLE SITE RIGHT RADIAL; BG TIDAL VOLUME(mL) 550 mL; BG TOTAL HEMOGLOBIN 8.7 g/dL (12.0-18.0); BG VENT MODE VENT - A/C; BG VENT RATE 20 set
[2019-09-06] MEDS: LACTULOSE 20G/30ML UDC PO SCH ×2 (09:09→17:45)
[2019-09-06] MEDS: LEVETIRACETAM 1,000 MG in SODIUM CHLORIDE 0.9% 100 ML IV SCH ×2 (09:09→21:14)
[2019-09-06] MEDS: PROPOFOL 10MG/ML 100ML 100 ML IV PRN ×2 (12:06→17:48)
[2019-09-06] MEDS: ACETAMINOPHEN 325MG TABLET PO PRN ×2 (12:21→18:22)
[2019-09-06] MEDS ORDERED: VANCOMYCIN 1 G PREMIX 200 ML IV SCH (16:00)
[2019-09-06] MEDS: FAMOTIDINE 20MG TABLET PO SCH (17:45)
[2019-09-06] MEDS: PHENYTOIN SODIUM 300 MG in SODIUM CHLORIDE 0.9% 50 ML IV SCH (21:14)
[2019-09-07] VITALS (85 sets, daily range): BP systolic 127–201; BP diastolic 57–111
[2019-09-07] MEDS: PIPERACILLIN/TAZOBACTAM 2.25 G in DEXTROSE 5% WATER 50 ML IV SCH ×4 (00:21→20:03)
[2019-09-07] MEDS: LORAZEPAM 2MG/ML CPJ IV PRN ×5 (00:22→17:02)
[2019-09-07] MEDS: IPRATROPIUM/ALBUTEROL 0.5-3(2.5)MG/3ML NEB HHN SCH ×4 (02:25→20:31)
[2019-09-07 07:04] LABS: BG BASE EXCESS -1.9 mmol/L (-2.0-2.0); BG CARBOXYHEMOGLOBIN 0.6 % (0.5-1.5); BG DEOXYHEMOGLOBIN 5.1 % (0.0-5.0); BG HCO3 ACT 22.8 mmol/L (22.0-26.0); BG METHEMOGLOBIN 0.3 % (0.0-1.5); BG OXYGEN SATURATION 94.9 % (92.0-98.5); BG PCO2 38.7 mmHg (35.0-45.0); BG PH 7.388 (7.350-7.450); BG PO2 74.8 mmHg (75.0-100.0); BG SAMPLE SITE RIGHT RADIAL; BG TIDAL VOLUME(mL) 500 mL; BG TOTAL HEMOGLOBIN 12.2 g/dL (12.0-18.0); BG VENT MODE VENT - A/C; BG VENT RATE 20 set
[2019-09-07 08:00] LABS: HEMATOCRIT. 24.4 % (42.0-52.0); MEAN CORPUSCULAR HEMOGLOBIN 28.8 pg (28.0-32.0); MEAN CORPUSCULAR VOLUME 88.3 fL (80.0-94.0); MEAN PLATELET VOLUME 8.2 fl (7.4-10.4); PLATELET 265 x1000/uL (130-400); RED BLOOD CELL COUNT 2.77 mill/uL (4.7-6.1)
[2019-09-07] MEDS: LACTULOSE 20G/30ML UDC PO SCH ×2 (08:34→17:02)
[2019-09-07] MEDS: LEVETIRACETAM 1,000 MG in SODIUM CHLORIDE 0.9% 100 ML IV SCH ×2 (08:34→21:25)
[2019-09-07] MEDS: PROPOFOL 10MG/ML 100ML 100 ML IV PRN ×5 (08:38→21:26)
[2019-09-07] MEDS ORDERED: POTASSIUM CHLORIDE 20MEQ/PACKET PO NR (09:15)
[2019-09-07 09:35] LABS: PLATELET ESTIMATE NORMAL
[2019-09-07 09:40] LABS: CREATINE KINASE 425 IU/L (39-308)
[2019-09-07] MEDS: SODIUM CHLORIDE 0.9% INJ 3ML FLUSH IVF SCH ×2 (13:08→22:00)
[2019-09-07] MEDS: FAMOTIDINE 20MG TABLET PO SCH (17:02)
[2019-09-07] MEDS: PHENYTOIN SODIUM 300 MG in SODIUM CHLORIDE 0.9% 50 ML IV SCH (21:25)
[2019-09-07] MEDS: AMLODIPINE 5MG TABLET PO SCH (22:45)
[2019-09-08] VITALS (80 sets, daily range): BP systolic 123–179; BP diastolic 67–125
[2019-09-08] MEDS: PIPERACILLIN/TAZOBACTAM 2.25 G in DEXTROSE 5% WATER 50 ML IV SCH ×4 (00:38→18:01)
[2019-09-08] MEDS: PROPOFOL 10MG/ML 100ML 100 ML IV PRN ×6 (00:39→23:56)
[2019-09-08] MEDS: IPRATROPIUM/ALBUTEROL 0.5-3(2.5)MG/3ML NEB HHN SCH ×4 (02:21→20:28)
[2019-09-08 05:33] LABS: BASOPHILS % 0.2 % (0.0-2.0); EOSINOPHILS % 2.8 % (0.0-5.0); HEMATOCRIT. 24.7 % (42.0-52.0); HEMOGLOBIN. 8.4 g/dL (14.0-18.0); LYMPHOCYTES % 7.4 % (20.0-50.0); MEAN CORPUSCULAR HEMOGLOBIN 29.9 pg (28.0-32.0); MEAN CORPUSCULAR VOLUME 88.1 fL (80.0-94.0); MEAN PLATELET VOLUME 7.8 fl (7.4-10.4); MONOCYTES % 7.8 % (2.0-8.0); NEUTROPHILS % 81.8 % (40.0-76.0); PLATELET 332 x1000/uL (130-400); RED BLOOD CELL COUNT 2.81 mill/uL (4.7-6.1)
[2019-09-08] MEDS: SODIUM CHLORIDE 0.9% INJ 3ML FLUSH IVF SCH ×3 (06:00→21:28)
[2019-09-08] MEDS: LORAZEPAM 2MG/ML CPJ IV PRN (06:39)
[2019-09-08 07:21] LABS: BG BASE EXCESS -2.9 mmol/L (-2.0-2.0); BG DEOXYHEMOGLOBIN 5.7 % (0.0-5.0); BG HCO3 ACT 21.4 mmol/L (22.0-26.0); BG METHEMOGLOBIN 0.1 % (0.0-1.5); BG OXYGEN SATURATION 94.3 % (92.0-98.5); BG OXYHEMOGLOBIN 94.2 % (94.0-97.0); BG PCO2 35.2 mmHg (35.0-45.0); BG PH 7.401 (7.350-7.450); BG PO2 73.6 mmHg (75.0-100.0); BG SAMPLE SITE RIGHT RADIAL; BG TIDAL VOLUME(mL) 500 mL; BG VENT MODE VENT - A/C; BG VENT RATE 20 set
[2019-09-08] MEDS: LEVETIRACETAM 1,000 MG in SODIUM CHLORIDE 0.9% 100 ML IV SCH ×2 (08:51→21:49)
[2019-09-08] MEDS: LACTULOSE 20G/30ML UDC PO SCH ×2 (08:51→17:59)
[2019-09-08] MEDS: AMLODIPINE 5MG TABLET PO SCH ×2 (08:51→21:49)
[2019-09-08] MEDS ORDERED: PROPOFOL 10MG/ML 100ML 100 ML IV PRN (12:15)
[2019-09-08] MEDS: CLONIDINE 0.1MG TABLET PO PRN (12:48)
[2019-09-08] MEDS: FAMOTIDINE 20MG TABLET PO SCH (18:00)
[2019-09-08] MEDS: PHENYTOIN SODIUM 300 MG in SODIUM CHLORIDE 0.9% 50 ML IV SCH (21:49)
[2019-09-09] VITALS (83 sets, daily range): BP systolic 128–216; BP diastolic 63–130
[2019-09-09] MEDS: PROPOFOL 10MG/ML 100ML 100 ML IV PRN ×3 (01:19→07:33)
[2019-09-09] MEDS: IPRATROPIUM/ALBUTEROL 0.5-3(2.5)MG/3ML NEB HHN SCH ×4 (01:25→20:44)
[2019-09-09 05:25] LABS: HEMATOCRIT. 31.3 % (42.0-52.0); HEMOGLOBIN. 10.1 g/dL (14.0-18.0); MEAN CORPUSCULAR HEMOGLOBIN 28.8 pg (28.0-32.0); MEAN PLATELET VOLUME 7.8 fl (7.4-10.4); PLATELET 432 x1000/uL (130-400); RED BLOOD CELL COUNT 3.52 mill/uL (4.7-6.1); RED CELL DISTRIBUTION WIDTH 13.8 % (11.6-14.6)
[2019-09-09] MEDS: SODIUM CHLORIDE 0.9% INJ 3ML FLUSH IVF SCH ×3 (05:37→21:37)
[2019-09-09 07:42] LABS: PLATELET ESTIMATE INCREASED
[2019-09-09] MEDS: LACTULOSE 20G/30ML UDC PO SCH ×2 (08:22→17:54)
[2019-09-09] MEDS: LEVETIRACETAM 1,000 MG in SODIUM CHLORIDE 0.9% 100 ML IV SCH ×2 (08:22→21:02)
[2019-09-09] MEDS: AMLODIPINE 5MG TABLET PO SCH ×2 (08:23→21:04)
[2019-09-09 08:47] LABS: BG BASE EXCESS -4.4 mmol/L (-2.0-2.0); BG CARBOXYHEMOGLOBIN 0.4 % (0.5-1.5); BG FRACTION INSPIRED OXYGEN 70; BG HCO3 ACT 20.9 mmol/L (22.0-26.0); BG METHEMOGLOBIN 0.3 % (0.0-1.5); BG OXYHEMOGLOBIN 93.3 % (94.0-97.0); BG PCO2 39.2 mmHg (35.0-45.0); BG PH 7.345 (7.350-7.450); BG PO2 71.5 mmHg (75.0-100.0); BG SAMPLE SITE RIGHT RADIAL; BG TIDAL VOLUME(mL) 500 mL; BG TOTAL HEMOGLOBIN 8.9 g/dL (12.0-18.0); BG VENT MODE VENT - A/C; BG VENT RATE 20 set
[2019-09-09] MEDS: CLONIDINE 0.1MG TABLET PO PRN ×3 (09:07→23:19)
[2019-09-09 15:19] LABS: CLARITY URINE CLEAR (CLEAR); COLOR URINE YELLOW (YELLOW); KETONES URINE NEGATIVE (NEGATIVE); LEUKOCYTE ESTERASE URINE NEGATIVE (NEGATIVE); NITRITE URINE NEGATIVE (NEGATIVE); OCCULT BLOOD URINE TRACE (NEGATIVE); PROTEIN URINE 3+ (NEGATIVE); SPECIFIC GRAVITY URINE 1.013 (1.005-1.030); UROBILINOGEN URINE 0.2 E.U./dL (0.2-1.0)
[2019-09-09] MEDS: LORAZEPAM 2MG/ML CPJ IV PRN ×2 (16:02→20:07)
[2019-09-09] MEDS ORDERED: MEROPENEM 500 MG in SODIUM CHLORIDE 0.9% 50 ML IV SCH (17:00)
[2019-09-09] MEDS: FAMOTIDINE 20MG TABLET PO SCH (17:54)
[2019-09-09] MEDS: METRONIDAZOLE 250MG TABLET PO SCH (17:58)
[2019-09-09] MEDS: PHENYTOIN SODIUM 300 MG in SODIUM CHLORIDE 0.9% 50 ML IV SCH (21:01)
[2019-09-09] MEDS ORDERED: ACETYLCYSTEINE 100MG/ML 10% VIAL 4ML INH SCH (22:00)
[2019-09-10] VITALS (41 sets, daily range): BP systolic 121–205; BP diastolic 63–122
[2019-09-10] MEDS: METRONIDAZOLE 250MG TABLET PO SCH ×3 (00:02→11:04)
[2019-09-10] MEDS: LORAZEPAM 2MG/ML CPJ IV PRN ×3 (00:18→11:39)
[2019-09-10] MEDS: IPRATROPIUM/ALBUTEROL 0.5-3(2.5)MG/3ML NEB HHN SCH ×4 (01:36→11:32)
[2019-09-10] MEDS: ACETAMINOPHEN 325MG TABLET PO PRN (04:02)
[2019-09-10 05:21] LABS: HEMATOCRIT. 28.7 % (42.0-52.0); HEMOGLOBIN. 9.3 g/dL (14.0-18.0); MEAN CORPUSCULAR VOLUME 89.8 fL (80.0-94.0); MEAN PLATELET VOLUME 8.2 fl (7.4-10.4); PLATELET 460 x1000/uL (130-400)
[2019-09-10] MEDS: SODIUM CHLORIDE 0.9% INJ 3ML FLUSH IVF SCH (06:00)
[2019-09-10 06:15] LABS: HEPATITIS B SURFACE ANTIGEN NEGATIVE
[2019-09-10] MEDS: CLONIDINE 0.1MG TABLET PO PRN (07:00)
[2019-09-10 07:49] LABS: PLATELET ESTIMATE INCREASED
[2019-09-10 08:12] LABS: BG BASE EXCESS -5.8 mmol/L (-2.0-2.0); BG CARBOXYHEMOGLOBIN 0.3 % (0.5-1.5); BG FRACTION INSPIRED OXYGEN 70; BG HCO3 ACT 18.8 mmol/L (22.0-26.0); BG METHEMOGLOBIN 0.1 % (0.0-1.5); BG OXYHEMOGLOBIN 94.6 % (94.0-97.0); BG PCO2 33.4 mmHg (35.0-45.0); BG PH 7.368 (7.350-7.450); BG PO2 75.9 mmHg (75.0-100.0); BG SAMPLE SITE RIGHT RADIAL; BG TIDAL VOLUME(mL) 500 mL; BG TOTAL HEMOGLOBIN 9.3 g/dL (12.0-18.0); BG VENT MODE VENT - A/C; BG VENT RATE 20 set
[2019-09-10] MEDS: LEVETIRACETAM 1,000 MG in SODIUM CHLORIDE 0.9% 100 ML IV SCH (08:35)
[2019-09-10] MEDS: AMLODIPINE 5MG TABLET PO SCH (08:36)
[2019-09-10] MEDS ORDERED: HYDRALAZINE HCL 50MG TABLET PO SCH (09:00)
[2019-09-10] MEDS ORDERED: POTASSIUM CHLORIDE 20MEQ/PACKET PO NR (10:00)
[2019-09-10] MEDS ORDERED: ENOXAPARIN 100MG/ML SYR SUBCUT SCH (10:00)
[2019-09-10] MEDS ORDERED: FUROSEMIDE 40MG/4ML VIAL IVP SCH (11:00)
[2019-09-10] MEDS ORDERED: NYSTATIN POWDER 15GM TOP SCH (13:00)
[2019-09-10] MEDS ORDERED: MORPHINE SULFATE 250 MG in DEXT 5% WATER 240 ML IV PRN (13:30)
== END 2019-09-10 16:04 | disposition expired | DRG 720 ==
LOC: ER 13:31 → CVICU 15:31 → EDBEDREQ 15:38 → ENRESERV 15:56
PROVIDERS: ADMIT Internal Medicine; ATTEND Internal Medicine
PROC: 5A1955Z Respiratory Ventilation, Greater than 96 Consecutive Hours (ICD-10-PCS; principal; 2019-08-29)
PROC: 4A00X4Z Measurement of Central Nervous Electrical Activity, External Approach (ICD-10-PCS; 2019-09-01)
PROC: 05HY33Z Insertion of Infusion Device into Upper Vein, Percutaneous Approach (ICD-10-PCS; 2019-09-01)
PROC: B54MZZA Ultrasonography of Right Upper Extremity Veins, Guidance (ICD-10-PCS; 2019-09-01)
PROC: 5A1955Z Respiratory Ventilation, Greater than 96 Consecutive Hours (ICD-10-PCS; 2019-09-06)
PROC: 0BH17EZ Insertion of Endotracheal Airway into Trachea, Via Natural or Artificial Opening (ICD-10-PCS; 2019-09-06)
PROC: 5A12012 Performance of Cardiac Output, Single, Manual (ICD-10-PCS; 2019-09-06)
PROC: 0BH17EZ Insertion of Endotracheal Airway into Trachea, Via Natural or Artificial Opening (ICD-10-PCS; 2019-09-06)
PROC: 4A00X4Z Measurement of Central Nervous Electrical Activity, External Approach (ICD-10-PCS; 2019-09-10)
DX: A41.9 Sepsis, unspecified organism (principal); J96.01 Acute respiratory failure with hypoxia; N17.0 Acute kidney failure with tubular necrosis; J69.0 Pneumonitis due to inhalation of food and vomit; E43 Unspecified severe protein-calorie malnutrition; G93.1 Anoxic brain damage, not elsewhere classified; G93.41 Metabolic encephalopathy; E87.2 Acidosis; E83.42 Hypomagnesemia; I42.9 Cardiomyopathy, unspecified; I46.9 Cardiac arrest, cause unspecified; I50.9 Heart failure, unspecified; I48.91 Unspecified atrial fibrillation; E78.00 Pure hypercholesterolemia, unspecified; Z86.73 Personal history of transient ischemic attack (TIA), and cerebral infarction without residual deficits; I25.2 Old myocardial infarction; N39.0 Urinary tract infection, site not specified; I25.10 Atherosclerotic heart disease of native coronary artery without angina pectoris; D64.9 Anemia, unspecified; E78.1 Pure hyperglyceridemia; E78.5 Hyperlipidemia, unspecified; E87.0 Hyperosmolality and hypernatremia; E87.6 Hypokalemia; Z66 Do not resuscitate; Z79.82 Long term (current) use of aspirin; I13.0 Hypertensive heart and chronic kidney disease with heart failure and stage 1 through stage 4 chronic kidney disease, or unspecified chronic kidney disease; G40.409 Other generalized epilepsy and epileptic syndromes, not intractable, without status epilepticus; R74.0 Nonspecific elevation of levels of transaminase and lactic acid dehydrogenase [LDH]; N18.4 Chronic kidney disease, stage 4 (severe); I48.20 Chronic atrial fibrillation, unspecified
CPT/HCPCS: 36415; 36573; 36600; 71045; 74018; 76770; 80048; 80061; 80185; 80202; 80305; 80320; 81003; 82140; 82375; 82550; 82553; 82570; 82575; 82805; 82962; 83605; 83735; 83880; 84100; 84134; 84156; 84439; 84443; 84478; 84484; 86038; 86160; 86803; 87070; 87340; 92610; 92950; 93005; 93306; 93970; 94002; 94003; 94640; 96374; 99291; A6261; C1725; J0461; J1165; J1650; J1940; J1953; J2060; J2185; J2250; J2270; J2543; J2704; J3370; J3475; J3480; J3490; J7030; J7040; J7050; J7060; J7608; J7620; A4315; G0480